=== PATIENT | female | born 1960 | race Caucasian/White ===

== ENCOUNTER → 2016-12-27 | Outpatient (CLI) | payer OTHER | END | disposition home or self-care (01) | LOC: CC 07:37 | PROVIDERS: ATTEND Obstetrics & Gynecology | DX: Z01.419 Encounter for gynecological examination (general) (routine) without abnormal findings (principal) ==

== ENCOUNTER → 2017-05-13 | Outpatient (CLI) | payer BC | END | disposition home or self-care (01) | LOC: GMAB 10:12 | PROVIDERS: ATTEND Family Medicine | DX: Z00.01 Encounter for general adult medical examination with abnormal findings (principal) ==

== ENCOUNTER → 2017-05-13 | Outpatient (CLI) | payer BC | END | disposition home or self-care (01) | LOC: GMAB 17:03 | PROVIDERS: ATTEND Family Medicine | DX: R30.0 Dysuria (principal) ==

== ENCOUNTER → 2018-01-08 | Outpatient (CLI) | payer BC ==
--- NOTE | 2018-01-08 15:11 | MRI ---
EXAM DESCRIPTION: Shoulder,Left CLINICAL HISTORY: 57 years Female, SHOULDER PAIN COMPARISON: None. TECHNIQUE: Noncontrast multiplanar multisequence magnetic resonance imaging of the left shoulder was performed using standard protocol. 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 Small subacromial/subdeltoid bursal fluid collection is present. There is type II acromial morphology. Mild thickening and heterogeneity is present within the deep portion of the stent graft insertion consistent with tendinosis. Mild interstitial fraying is noted within the cranial portion of the subscapularis tendon insertion. No high-grade partial-thickness or full-thickness rotator cuff tear is present. No significant muscle atrophy or fatty replacement is present. Long head of the biceps tendon situated within the intertubercular groove. Bicipital labral anchor is intact. Tearing within the superior labrum is noted at the 12:00 o'clock position extending anteriorly to the approximate 1:30 position. No Hill-Sachs deformity is present. The glenohumeral joint articular surface is maintained. IMPRESSION: Superior labral tearing 12:00 to 1:30 position. Supraspinatus and subscapularis tendinosis. No high-grade partial-thickness or full-thickness rotator cuff tear. 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 Small subacromial/subdeltoid bursal fluid collection. Electronically signed by: Raymundo Romano MD 01/08/2018 3:10 PM CDT
== END ==
LOC: MRI 09:45
PROVIDERS: ATTEND Family Medicine
DX: S43.432A Superior glenoid labrum lesion of left shoulder, initial encounter (principal); M19.011 Primary osteoarthritis, right shoulder

== ENCOUNTER → 2018-06-14 | Outpatient (CLI) | payer BC | LOC: GMAE 10:39 | PROVIDERS: ATTEND Family Medicine | DX: Z00.01 Encounter for general adult medical examination with abnormal findings (principal); R94.5 Abnormal results of liver function studies ==

== ENCOUNTER → 2018-06-17 | Outpatient (CLI) | payer BC ==
--- NOTE | 2018-06-18 08:35 | US ---
EXAM DESCRIPTION: Liver: ULTRASOUND. CLINICAL HISTORY: ABNORMAL RESULTS OF LIVER FUNCTION STUDIES COMPARISON: Mammographic screening examination on the same visit. TECHNIQUE: Transabdominal scannin-dimensional and Doppler modes. FINDINGS: Gallbladder: Surgically absent. No fluid in the gallbladder fossa. Non-tender with transducer pressure. Common bile duct: caliber 4.4 mm within normal limits. Liver: Increased echogenicity; contour liver capsule smooth where seen. No fluid around the liver. Intrahepatic biliary ducts normal caliber. Doppler hepatopedal flow portal vein. Normal caliber. Long axis right lobe 17.0 cm. Pancreas: Echogenic but normal size. Duct not seen. IMPRESSION: Mild enlargement of the liver with steatosis. Normal ducts in vascularity. Smooth capsule. No ascites. Prior cholecystectomy with no fluid or tenderness. Normal caliber common bile duct. Steatosis of the pancreas. Electronically signed by: Mendoza Chaudhry MD 06/18/2018 8:33 AM [employer]BER SEC[employer] SPECIALIST
--- NOTE | 2018-06-18 15:16 | MAM ---
EXAM DESCRIPTION: 3D Screening BILATERAL : Digital Mammography. CLINICAL HISTORY: 58 years Female SCREEN . No complaints. No personal history of breast cancer. Remote family history of breast cancer. Childbirth. Postmenopausal 22 years. Has taken HRT unknown age. Prior benign left breast biopsy. Lifetime risk of developing breast cancer (Tyrer-Cuzick model)(%): Not calculated COMPARISON: 2-D digital screening bilateral mammography 01/28/2016.. No prior reports available. TECHNIQUE: Bilateral CC and MLO projection full-field images, digital tomosynthesis mammographic technique. Bilateral digital 2-D full-field MLO images. CAD not available for tomosynthesis or 2-D images. Technique for left breast limited due to patient shoulder, poor visualization of left pectoral muscle. FINDINGS: The breast parenchymal density pattern is: Scattered areas of fibroglandular density. No skin thickening or nipple retraction. Right axillary lymph nodes. Biopsy site marker posterior left breast. Solitary bilateral microcalcifications. No new focal, stellate mass or density, focal asymmetry , and no suspicious microcalcifications bilaterally. Stable mammograms compared to prior study. Taking into account, differences in mammographic technique. IMPRESSION: Benign exam. BIRAD CATEGORY: 2 BENIGN FINDINGS. RECOMMENDATIONS: FOLLOW UP: Routine digital bilateral mammographic screening, one year interval from June 2018. Written communication explaining the IMPRESSION and follow-up, will be mailed to the patient and referring health care provider. According to the [employer], yearly mammograms are recommended starting at age 40 and continuing as long as a woman is in good health. Any breast change noted on a breast self-exam should be reported promptly to the patient's healthcare provider. Breast MRI is recommended for women with an approximately 20-25% or greater lifetime risk of breast cancer, including women with a strong family history of breast or ovarian cancer and women who have been treated for Hodgkin's disease. A negative mammographic report should not delay tissue diagnosis in patients with significant clinical history or physical findings. Extremely dense breast tissue limits the sensitivity of digital mammography. Electronically signed by: Mendoza Chaudhry MD 06/18/2018 3:14 PM MECH[employer] MAINTENA[employer]CE FOREMAN
== END ==
LOC: US 08:34
PROVIDERS: ATTEND Family Medicine
DX: Z12.31 Encounter for screening mammogram for malignant neoplasm of breast (principal); K76.0 Fatty (change of) liver, not elsewhere classified; K86.89 Other specified diseases of pancreas; R94.5 Abnormal results of liver function studies

== ENCOUNTER → 2019-09-22 | Outpatient (CLI) | payer BC | LOC: GMAE 11:37 | PROVIDERS: ATTEND Family Medicine | DX: Z00.00 Encounter for general adult medical examination without abnormal findings (principal) ==

== ENCOUNTER → 2019-10-14 | Outpatient (CLI) | payer BC ==
--- NOTE | 2019-10-14 10:33 | RAD ---
EXAM DESCRIPTION: Wrist,Right 3 Views CLINICAL HISTORY: MASS OF WRIST COMPARISON: None FINDINGS: 3 views of the right wrist. No acute fracture, dislocation or aggressive bone lesion is present. Bone mineralization appears normal. No erosions are present. No advanced osteoarthritis is present. No gross soft tissue findings. IMPRESSION: Normal Electronically signed by: Raymundo Romano MD 10/14/2019 10:31 AM CDT
== END ==
LOC: RAD 08:38
PROVIDERS: ATTEND Orthopaedic Surgery
DX: R22.31 Localized swelling, mass and lump, right upper limb (principal)